=== PATIENT | female | born 1960 | race Asian ===

== ENCOUNTER 2016-10-28 07:09 | Outpatient (CLI) | payer BC ==
[2016-10-28] MEDS ORDERED: IOPAMIDOL-300 100 ML VIAL IVP ONE (08:00)
--- NOTE | 2016-10-28 15:59 | CT Report ---
CT OF THE CHEST WITH CONTRAST: 10/28/2016 CLINICAL INDICATION: Infiltrate, emphysema. COMPARISON: Plain film of 10/13/2016, CT of 08/14/2006. TECHNIQUE: Axial CT images of the chest were obtained with 100 mL of Isovue-300 intravenously. FINDINGS: The heart and great vessels are unremarkable. No hilar or mediastinal lymphadenopathy is p resent. There is extensive bronchiectasis in the lower lobes and left upper lobe, with right lower lo be peribronchial thickening, increased from previous CT, accounting for the plain film abnormality. N o focal infiltrate, effusion, or pneumothorax is evident. Limited evaluation of upper abdominal struc tures demonstrates normal adrenal glands. The osseous structures demonstrate degenerative changes. IMPRESSION: EXTENSIVE BRONCHIECTASIS, WITH PERIBRONCHIAL THICKENING ACCOUNTING FOR THE PLAIN FILM AB NORMALITY. In accordance with CT protocol optimization, one or more of the following dose reduction techniques w ere utilized for this exam: automated exposure control, adjustment of mA and/or KV based on patient size, or use of iterative reconstructive technique. JOB #: [id number] EXT JOB #:[id number]
== END 2016-10-28 07:10 | disposition home or self-care (01) ==
LOC: DI 07:09
PROVIDERS: ATTEND Family Medicine
DX: J47.9 Bronchiectasis, uncomplicated (principal)
CPT/HCPCS: 71260; Q9967

== ENCOUNTER 2018-03-03 10:38 | Outpatient (CLI) | payer BC ==
--- NOTE | 2018-03-03 16:05 | XRAY Report ---
Reason: COPD Procedure Date: 03/03/2018 Accession Number: [id number] / [id number] Procedure: XR - Chest 2 View X-Ray CPT Code: 70653 FULL RESULT: EXAM: CHEST RADIOGRAPHY EXAM DATE: 03/03/2018 11:39 AM. CLINICAL HISTORY: COPD. COMPARISON: CHEST 2 VIEW PA/LAT 08/16/2017 9:27 AM CHEST W/ 10/28/2016 7:53 AM. TECHNIQUE: 2 views. FINDINGS: Lungs/Pleura: Mildly increased bilateral interstitial opacity with evidence of underlying bronchiectasis. Areas of scarring/atelectasis at the lung bases. No pneumothorax. No significant pleural effusion. Mediastinum: Heart and mediastinal contours are unremarkable. Other: Lumbar scoliosis. IMPRESSION: Mildly increased bilateral interstitial opacity with evidence of underlying bronchiectasis. Areas of scarring/atelectasis at the lung bases. RADIA
== END 2018-03-03 10:39 | disposition home or self-care (01) ==
LOC: DI 10:38
PROVIDERS: ATTEND Family Medicine
DX: R91.8 Other nonspecific abnormal finding of lung field (principal); J47.9 Bronchiectasis, uncomplicated
CPT/HCPCS: 71046

== ENCOUNTER 2018-03-05 15:06 | Outpatient (CLI) | payer BC ==
--- NOTE | 2018-03-06 09:14 | DEXA Report ---
Reason: POSTMENOPAUSAL STATUS Procedure Date: 03/05/2018 Accession Number: [id number] / [id number] Procedure: DEX - Dexa Spine and/or Hip CPT Code: FULL RESULT: EXAM: Dexa Spine and/or Hip DATE: 03/05/2018 3:36 PM CLINICAL HISTORY: POSTMENOPAUSAL STATUS TECHNIQUE: Dual energy x-ray absorptiometry (DXA) was performed on a Snapfish System. Regions measured are the AP Spine, femoral neck, and if needed forearm. COMPARISON: None. In accordance with the International Society for Clinical Densitometry (ISCD) guidelines, data from previous exams may be reanalyzed using current recommendations and techniques. This is done to allow a more accurate basis for comparison with the current study. FINDINGS: The data for the lumbar spine is as follows: BMD (g/cm/cm) T-SCORE Z-SCORE REGION L1 1.013 -1.0 0.1 L2 1.073 -1.1 0.0 L3 1.119 -0.7 0.4 L4 1.003 -1.6 -0.5 TOTAL 1.049 -1.1 0.0 NOTE: All evaluable vertebrae are used for classification The data for the hip is as follows: BMD (g/cm/cm) T-SCORE Z-SCORE REGION Neck 0.814 -1.6 -0.4 TOTAL 0.926 -0.7 0.2 NOTE: The femoral neck or total proximal femur, whichever is lowest, is used for classification. * Denotes significant change at the 95% confidence level. Denotes dissimilar scan types or analysis methods. IMPRESSION: THE WHO CLASSIFICATION BASED ON THE INTERNATIONAL REFERENCE STANDARD IS OSTEOPENIA. THE FRACTURE RISK IS INCREASED. RECOMMENDATION: Patients with diagnosis of osteoporosis or osteopenia should have regular bone mineral density assessment. For those eligible for Medicare, routine testing is allowed once every 2 years. Testing frequency can be increased for patients who have rapidly progressing disease or for those who are receiving medical therapy to restore bone mass. COMMENT: World Health Organization (WHO) definitions for osteoporosis and osteopenia: NORMAL BMD: T-score at -1.0 or higher, fracture risk is low OSTEOPENIA BMD: T-score between -1.0 and -2.5, fracture risk is increased. OSTEOPOROSIS BMD: T-score at -2.5 or lower, fracture risk is high. National Osteoporosis Foundation recommends: 1. Obtain adequate dietary calcium (at least 1200 mg per day) and vitamin D (400-800 international units per day). 2. Participate, as appropriate, in regular weightbearing and muscle-strengthening exercise. 3. Avoid tobacco use and reduce alcohol and caffeine intake. 4. For more detailed information see the website at www.NOF.org.
== END 2018-03-05 15:07 | disposition home or self-care (01) ==
LOC: DI 15:06
PROVIDERS: ATTEND Physician Assistant Medical
DX: M85.89 Other specified disorders of bone density and structure, multiple sites (principal)
CPT/HCPCS: 77080

== ENCOUNTER 2018-04-14 09:10 | Outpatient (CLI) | payer BC | END 2018-04-14 09:11 | disposition home or self-care (01) | LOC: DI 09:10 | PROVIDERS: ATTEND Internal Medicine Critical Care Medicine | DX: R00.0 Tachycardia, unspecified (principal); I27.20 Pulmonary hypertension, unspecified; I34.0 Nonrheumatic mitral (valve) insufficiency | CPT/HCPCS: 93306 ==

== ENCOUNTER 2018-06-22 11:20 | Outpatient (CLI) | payer BC ==
--- NOTE | 2018-06-26 17:10 | Mammography Report ---
Reason: SCREENING MAMMO Procedure Date: 06/22/2018 Accession Number: [id number] / [id number] Procedure: MGN - Screening Mammo Dig Bilat CPT Code: FULL RESULT: EXAM: Screening Mammo Dig Bilat DATE: 06/22/2018 11:43 AM CLINICAL HISTORY: Routine screening. No reported personal or family history of breast cancer. TECHNIQUE: Bilateral CC and MLO views were obtained. COMPARISON: 06/10/2016 through 10/14/2008 FINDINGS: The breasts demonstrate heterogeneously dense fibroglandular parenchyma bilaterally. Bilateral breasts: There are no suspicious masses, calcifications or areas of distortion. IMPRESSION: Negative examination RECOMMENDATION: Routine annual screening unless otherwise clinically indicated. BI-RADS CATEGORY 1: Negative STANDARD QUALIFYING STATEMENTS: 1. This examination was reviewed with the aid of Computer-Aided Detection (CAD). 2. A negative or benign imaging report should not preclude biopsy if clinically suspicious findings are present. 3. Dense breasts may obscure an underlying neoplasm. 4. This examination was reviewed without the aid of 3D breast imaging (tomosynthesis).
== END 2018-06-22 11:21 | disposition home or self-care (01) ==
LOC: DI.N 11:20
DX: Z12.31 Encounter for screening mammogram for malignant neoplasm of breast (principal)
CPT/HCPCS: 77067

== ENCOUNTER 2018-07-03 11:40 | Outpatient (CLI) | payer BC ==
[2018-07-03 19:21] LABS: CALCIUM 9.1 mg/dL (8.5-10.3); CREATININE 0.4 mg/dL (0.4-1.0)
[2018-07-03 20:17] LABS: HB2 TOTAL 14.6 g/dL; HEMOGLOBIN A1C 0.62 g/dL
== END 2018-07-03 11:41 | disposition home or self-care (01) ==
LOC: LAB.WCP 11:40
PROVIDERS: ATTEND Physician Assistant Medical
DX: R73.9 Hyperglycemia, unspecified (principal)
CPT/HCPCS: 36415; 80048; 83036

== ENCOUNTER 2019-12-24 14:09 | Outpatient (CLI) | payer BC ==
--- NOTE | 2019-12-24 16:49 | XRAY Report ---
PROCEDURE: Shoulder 2 View RT INDICATIONS: RIGHT SHOULDER PAIN TECHNIQUE: 2 views of the shoulder were acquired. COMPARISON: None. FINDINGS: Bones: No fractures or dislocations. No suspicious bony lesions. Visualized ribs appear intact. M oderate to severe acromioclavicular degenerative narrowing. Soft tissues: No suspicious soft tissue calcifications. IMPRESSION: Moderate to severe acromioclavicular degenerative narrowing. Reviewed by: Greta Cruz MD on 12/24/2019 4:48 PM PDT Approved by: Greta Cruz MD on 12/24/2019 4:48 PM PDT Station ID: [id number]
== END 2019-12-24 14:10 | disposition home or self-care (01) ==
LOC: DI.WCP 14:09
PROVIDERS: ATTEND Family Medicine
DX: M19.011 Primary osteoarthritis, right shoulder (principal)

== ENCOUNTER 2020-09-01 10:52 | Emergency (ER) | payer BC ==
--- OUTSIDE RECORDS SUMMARY | 2020-09-01 10:56 | EXTERNAL MEDICAL SUMMARY RPT | Continuity of Care Document ---
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
--- OUTSIDE RECORDS SUMMARY | 2020-09-01 11:01 | EXTERNAL MEDICAL SUMMARY RPT | Continuity of Care Document ---
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
[2020-09-01 12:07] LABS: BASOPHILS # (AUTO) 0.1 10^3/uL (0.0-0.1); EOSINOPHILS % (AUTO) 0.4 %; HCT - HEMATOCRIT 33.5 % (37.0-47.0); HGB - HEMOGLOBIN 11.2 g/dL (12.0-16.0); LYMPHOCYTES # (AUTO) 1.3 10^3/uL (1.5-3.5); LYMPHOCYTES % (AUTO) 27.7 %; MEAN CORPUSCULAR HEMOGLOBIN 32.6 pg (27.0-31.0); MEAN CORPUSCULAR HGB CONC 33.4 g/dL (32.0-36.0); MEAN CORPUSCULAR VOLUME 97.4 fL (81.0-99.0); MONOCYTES # (AUTO) 0.8 10^3/uL (0.0-1.0); MONOCYTES % (AUTO) 15.7 %; NEUTROPHILS # (AUTO) 2.4 10^3/uL (1.5-6.6); NEUTROPHILS % (AUTO) 49.3 %; PLT - PLATELET COUNT 281 10^3/uL (130-450); RED BLOOD COUNT 3.44 10^6/uL (4.20-5.40); RED CELL DISTRIBUTION WIDTH 11.5 % (12.0-15.0); WHITE BLOOD COUNT 4.8 x10^3/uL (4.8-10.8)
[2020-09-01 12:13] LABS: SLIDE REVIEW? Indicated
[2020-09-01 12:19] LABS: ALBUMIN 4.1 g/dL (3.2-5.5); ALBUMIN/GLOBULIN RATIO 1.6 (1.0-2.2); BILIRUBIN,TOTAL 0.4 mg/dL (0.2-1.0); CALCIUM 9.1 mg/dL (8.5-10.3); CREATININE 0.8 mg/dL (0.4-1.0); POTASSIUM 3.7 mmol/L (3.5-5.0); TOTAL PROTEIN 6.7 g/dL (6.7-8.2)
[2020-09-01 12:35] LABS: BILIRUBIN,URINE NEGATIVE (NEGATIVE); GLUCOSE, URINE (UA) NEGATIVE (NEGATIVE); KETONES,URINE (UA) NEGATIVE (NEGATIVE); LEUKOCYTE ESTERASE, URINE NEGATIVE (NEGATIVE); NITRITE,URINE NEGATIVE (NEGATIVE); OCCULT BLOOD,URINE NEGATIVE (NEGATIVE); PROTEIN,URINE NEGATIVE (NEGATIVE); UROBILINOGEN,URINE 0.2 (NORMAL) E.U./dL (NORMAL)
[2020-09-01 12:37] LABS: CLARITY,URINE CLEAR (CLEAR)
[2020-09-01 12:48] LABS: RBC MORPHOLOGY (MULTIPLE) 2+ ANISOCYTOSIS (NORMAL)
[2020-09-01] MEDS ORDERED: IOVERSOL 320 100 ML VIAL IVP ONE ×2 (14:00→15:56)
--- NOTE | 2020-09-01 16:15 | CT Report ---
PROCEDURE: Abdomen/Pelvis W INDICATIONS: LLQ pain CONTRAST: IV CONTRAST: Optiray 320 ml: 100 PO CONTRAST: *NO PO CONTRAST TECHNIQUE: After the administration of intravenous contrast, 5 mm thick sections acquired from the diaphragms to the symphysis. 5 mm thick coronal and sagittal reformats were acquired. For radiation dose reducti on, the following was used: automated exposure control, adjustment of mA and/or kV according to marcelina ent size. COMPARISON: None. FINDINGS: Image quality: Excellent. ABDOMEN: Lung bases: There is mild scarring in the lung bases. Heart size is enlarged. Solid organs: Evaluation of the liver demonstrates no focal hepatic lesions. Gallbladder appears with in normal limits without calcified gallstones. Biliary system is non dilated. The spleen is normal i n size. Pancreas enhances normally without peripancreatic fat stranding or fluid collections. No adr enal nodules. Kidneys demonstrate no hydronephrosis. Peritoneum and bowel: Small bowel loops demonstrate normal wall thickness and caliber. No pericecal i nflammatory changes to suggest appendicitis. There is colonic diverticulosis with mild diverticular a nd colonic wall thickening in the proximal sigmoid colon associated with peridiverticular fat strandi ng. Findings are consistent with acute diverticulitis. No diverticular abscess or macroscopic free ai r. No free fluid or air. Nodes and vessels: No retroperitoneal or mesenteric adenopathy by size criteria. Aorta and inferior vena cava are normal in size. Miscellaneous: No ventral hernias. PELVIS: Genitourinary: Bladder wall thickness is normal. Miscellaneous: No inguinal hernias or adenopathy. Bones: No suspicious bony lesions. No vertebral body compression fractures. IMPRESSION: 1. Sigmoid diverticulitis in the proximal sigmoid colon without evidence of diverticular abscess or m acroscopic free air. Reviewed by: Quoc Berrios MD on 09/01/2020 4:13 PM PDT Approved by: Quoc Berrios MD on 09/01/2020 4:13 PM PDT Station ID: [id number]
[2020-09-01] MEDS ORDERED: levoFLOXacin 250 MG TABLET PO STA (17:22)
[2020-09-01] MEDS ORDERED: metroNIDAZOLE 250 MG TABLET PO STA (17:22)
--- NOTE | 2020-09-01 17:50 | ED Physician Documentation ---
PD HPI ABD PAIN - Stated complaint Stated Complaint: L LOWER ABDOMINAL PX - Chief complaint Chief Complaint: Abd Pain - History obtained from History obtained from: Patient - Additional information Additional information: Pt comes to the ED with CC of LLQ pain, increasing for the past week. No fevers/chills. Mild nausea, no vomiting. Pt had constipation first, then some loose stools. No blood. 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 Review of Systems Ten Systems: 10 systems reviewed and negative Constitutional: reports: Reviewed and negative Eyes: reports: Reviewed and negative Ears: reports: Reviewed and negative Nose: reports: Reviewed and negative Throat: reports: Reviewed and negative Cardiac: reports: Reviewed and negative Respiratory: reports: Reviewed and negative GI: reports: Abdominal Pain, Nausea, Constipation, Diarrhea. 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 : None HEENT: None Psych: None Musculoskeletal: None Derm: None - Past Surgical History Past Surgical History: No - Present Medications Home Medications: Ambulatory Orders Medication Instructions Recorded Confirmed HYDROcod/ACETAM 5/325 [Nye 5/325] 1 - 2 tablet PO Q6H PRN #10 tablet 09/01/20 Levofloxacin [Levaquin] 500 mg PO DAILY #14 tablet 09/01/20 metroNIDAZOLE [Flagyl] 500 mg PO BID #32 tablet 09/01/20 - Allergies Allergies/Adverse Reactions: Allergies Allergy/AdvReac Type Severity Reaction Status Date / Time No Known Drug Allergies Allergy Verified 09/01/20 11:05 - Social History Does the pt smoke?: No Smoking Status: Never smoker Does the pt drink ETOH?: No Does the pt have substance abuse?: Yes - Immunizations Immunizations are current?: Yes - POLST Patient has POLST: No PD ED PE NORMAL - Vitals Vital signs reviewed: Yes - General General: Alert and oriented X 3, No acute distress (well-appearing) - HEENT HEENT: Atraumatic, PERRL, EOMI, Moist mucous membranes - Neck Neck: Supple, no meningeal sign - Cardiac Cardiac: RRR, No murmur - Respiratory Respiratory: No respiratory distress, Clear bilaterally - Abdomen Abdomen: Soft, Non distended, Other (moderate tend, no RB/guarding, LLQ ) - Back Back: No CVA TTP - Derm Derm: Warm and dry - Extremities Extremities: No deformity, No edema - Neuro Neuro: Alert and oriented X 3, promotional 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 analyst 2-12 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, Normal speech - Psych Psych: Normal mood, Normal affect Results - Vitals Vitals: Vital Signs - 24 hr 09/01/20 09/01/20 09/01/20 11:02 13:44 15:59 Temperature 36.9 C Heart Rate 83 86 88 Respiratory 15 18 16 Rate Blood Pressure 142/78 H 160/79 H 141/84 H O2 Saturation 99 100 99 09/01/20 18:02 Temperature Heart Rate 88 Respiratory 18 Rate Blood Pressure 158/83 H O2 Saturation 100 Oxygen O2 Source Room air - Labs Labs: Laboratory Tests 09/01/20 09/01/20 09/01/20 11:40 11:59 11:59 WBC 4.8 RBC 3.44 L Hgb 11.2 L Hct 33.5 L MCV 97.4 MCH 32.6 H MCHC 33.4 RDW 11.5 L Plt Count 281 MPV 9.0 Neut # (Auto) 2.4 Lymph # (Auto) 1.3 L [place] # (Auto) 0.8 Eos # (Auto) 0.0 Baso # (Auto) 0.1 Absolute Nucleated RBC 0.00 Nucleated RBC % 0.0 Manual Slide Review Indicated RBC Morph Micro Appear 2+ ANISOCYTOSIS Sodium 136 Potassium 3.7 Chloride 99 L Carbon Dioxide 28 Anion Gap 9.0 BUN 14 Creatinine 0.8 Estimated GFR (MDRD) 73 L Glucose 101 H Lactic Acid Calcium 9.1 Total Bilirubin 0.4 AST 19 ALT 20 Alkaline Phosphatase 49 Total Protein 6.7 Albumin 4.1 Globulin 2.6 Albumin/Globulin Ratio 1.6 Lipase 24 Urine Color YELLOW Urine Clarity CLEAR Urine pH 6.0 Ur Specific [place] 1.020 Urine Protein NEGATIVE Urine Glucose (UA) NEGATIVE Urine Ketones NEGATIVE Urine Occult Blood NEGATIVE Urine Nitrite NEGATIVE Urine Bilirubin NEGATIVE Urine Urobilinogen 0.2 (NORMAL) Ur Leukocyte Esterase NEGATIVE Ur Microscopic Review NOT INDICATED Urine Culture Comments NOT INDICATED 09/01/20 11:59 WBC RBC Hgb Hct MCV MCH MCHC RDW Plt Count MPV Neut # (Auto) Lymph # (Auto) [place] # (Auto) Eos # (Auto) Baso # (Auto) Absolute Nucleated RBC Nucleated RBC % Manual Slide Review RBC Morph Micro Appear Sodium Potassium Chloride Carbon Dioxide Anion Gap BUN Creatinine Estimated GFR (MDRD) Glucose Lactic Acid 1.3 Calcium Total Bilirubin AST ALT Alkaline Phosphatase Total Protein Albumin Globulin Albumin/Globulin Ratio Lipase Urine Color Urine Clarity Urine pH Ur Specific [place] Urine Protein Urine Glucose (UA) Urine Ketones Urine Occult Blood Urine Nitrite Urine Bilirubin Urine Urobilinogen Ur Leukocyte Esterase Ur Microscopic Review Urine Culture Comments - Rads (name of study) CT abd/pelvis Radiology: Final report received, EMP read indepedently, See rad report PD MEDICAL DECISION MAKING - ED course Complexity details: reviewed results, re-evaluated patient, considered differential, d/w patient ED course: Pt was treated symptomatically and worked up with labs and CT abd/pelvis, which showed sigmoid diverticulitis. She was treated with Levaquin and Flagyl in the ED, and given prescriptions for the same. We have discussed the usual indications for return. Departure - Departure Disposition: 01 Home, Self Care Clinical Impression: Diverticulitis Condition: Stable Instructions: ED Diverticulitis Prescriptions: metroNIDAZOLE [Flagyl] 500 mg PO BID #32 tablet Levofloxacin [Levaquin] 500 mg PO DAILY #14 tablet HYDROcod/ACETAM 5/325 [Nye 5/325] 1 - 2 tablet PO Q6H PRN #10 tablet PRN Reason: Pain Discharge Date/Time: 09/01/20 18:05
[2020-09-01 18:03] VITALS: BP 158/83
== END 2020-09-01 18:05 | disposition home or self-care (01) ==
LOC: ED 10:52
DX: K57.32 Diverticulitis of large intestine without perforation or abscess without bleeding (principal); Z94.2 Lung transplant status
CPT/HCPCS: 36415; 74177; 80053; 81003; 83605; 83690; 85025; 99284; A9270; Q9967; 81001; 87086

== ENCOUNTER 2021-10-23 13:24 | Outpatient (CLI) | payer BC | END 2021-10-23 13:25 | disposition home or self-care (01) | LOC: RT 13:24 | PROVIDERS: ATTEND Obstetrics & Gynecology | DX: J44.9 Chronic obstructive pulmonary disease, unspecified (principal) | CPT/HCPCS: 93005 ==

== ENCOUNTER 2022-05-18 13:37 | Outpatient (CLI) | payer MEDICARE, BC ==
--- NOTE | 2022-05-24 12:22 | Mammography Report ---
BILATERAL DIGITAL SCREENING MAMMOGRAM 3D/2D: 05/18/2022 CLINICAL: Routine screening. Comparison is made to exams dated: 10/22/2019 mammogram, 06/10/2016 mammogram, 06/15/2012 mammogram, 02/15 mammogram - [facility], 06/22/2018 mammogram - [facility], and 10/14/2008 [facility]. Both breasts are heterogeneously dense, which may obscure small masses (category c / 51-75% glandular tissue). No significant masses, calcifications, or other findings are seen in either breast. There has been no significant interval change. IMPRESSION: NEGATIVE There is no mammographic evidence of malignancy. A 1 year screening mammogram is recommended. Based on the Tyrer Cuzick model (a risk assessment model) the patients lifetime risk is 8.7% and her 10 year risk is 3.7%. According to the ACR, ACS, and NCCN guidelines, an annual breast MRI exam kandi g with mammogram is recommended if the patients lifetime risk is 20% or greater. This exam was interpreted at Station ID: [id number]. NOTE: For mammograms, a report in lay terms will be sent to the patient. Approximately 15% of breast malignancies will not be visualized mammographically. In the management of a palpable breast mass, a negative mammogram must not discourage biopsy of a clinically suspicious lesion. Electronically Signed By: Domo Muñiz M.D. [facility] [place]:05/23/2022 12:50:43 ACR BI-RADS Category 1: Negative 3341F PARENCHYMAL PATTERN: (D) - The breast(s) demonstrate(s) heterogeneously dense fibroglandular gui raya. BI-RADS CATEGORY: (1) - 1 RECOMMENDATION: (ANNUAL) - Recommend routine annual screening mammography. [id number] 1 year screening LATERALITY: (B)
== END 2022-05-18 13:38 | disposition home or self-care (01) ==
LOC: DI.N 13:37
PROVIDERS: ATTEND Obstetrics & Gynecology
DX: Z12.31 Encounter for screening mammogram for malignant neoplasm of breast (principal)